=== PATIENT | female | born 2000 | race Caucasian/White ===

== ENCOUNTER 2025-02-19 09:31 | Emergency (ER) | payer OTHER, SELFPAY ==
[2025-02-19 09:36] VITALS: BP 118/79; TEMP 37.2; O2SAT 99; BMI 28.3
[2025-02-19 09:37] VITALS: TEMP 37.2; O2SAT 99; BMI 28.3
--- NOTE | 2025-02-19 09:50 | CT_ITS ---
The [address] [address] Patient Name: MARIA ALEJANDRA BARRIENTOS MRN: [id number] date: 2000 Sex: F Assigned Patient Location: ED.MAIN Current Patient Location: ED.MAIN Accession/Order Number: [id number] Exam Date: 02/19/2025 09:55 Report Date: 02/19/2025 10:31 At the request of: RUBY HOGAN MD Procedure: CT head/brain wo con CT BRAIN WITHOUT CONTRAST: CLINICAL HISTORY: Headache, nausea and photosensitivity since yesterday. COMPARISON: None TECHNIQUE: Contiguous axial unenhanced images were obtained through the brain. This CT exam was performed using one or more following dose reduction techniques: Automated exposure control, adjustment of the mA and/or kV according to patient size, or use of iterative reconstruction technique. FINDINGS: The ventricles are normal in size and position. There are no areas of abnormal attenuation. There is no hemorrhage, mass effect or extra-axial collections. The imaged paranasal sinuses and mastoid air cells are clear. CT/CT head/brain wo con IMPRESSION: NO ACUTE INTRACRANIAL ABNORMALITY. Impression dictated by: Catarina Romano M.D. 02/19/2025 10:31 AM Dictation Location: [place] [address] Electronically authenticated by: [id number] Y Date: 02/19/2025 10:31
--- OUTSIDE RECORDS SUMMARY | 2025-02-19 09:55 | XMS_ITS | Encounter Summary ---
Author Organization [facility] Address [address] [place] [address] Care Team Providers Care Wheat Inspector Name Role Phone Deondre Carrasco MD Primary Care Provider [phone] Encounter Details Date Type Department Care Team (Late st Contact Info) Description 05/13/2024 Orders Only [facility] [address] SALAS [address] [phone] Social History Tobacco Use Types Packs/Day Years Used Date Smoking Tobacco: Never Smokeless Tobacco: Never Alcohol Use Standard Drinks/Week Comments Not Currently 0 (1 standard drink = 0.6 oz pur e alcohol) caffeine: occasional Humiliation, Afraid, Rape, and Kick questionnair e Answer Date Recorded Within the last year, have y ou been afraid of your partner or ex-partner? No 11/28/2023 Within the last year, have y ou been humiliated or emotionally abused in other ways by your partner or ex-partner? No Within the last year, have y ou been kicked, hit, slapped, or otherwise physically hurt by your partner or ex-partner? No 11/28/2023 Within the last year, have y ou been raped or forced to have any kind of sexual activity by your partner or ex-partner? No 11/28/2023 Social Connection and Isolat ion Panel [NHANES] Answer Date Recorded In a typical week, how many times do you talk on the phone with family, friends, or neighbors? More than three times a week 11/28/2023 How often do you get togethe r with friends or relatives? More than three times a week 11/28/2023 How often do you attend chur or latter day services? More than 4 times per year 11/28/2023 Do you belong to any clubs o r organizations such as latter day groups, unions, fraternal or athletic groups, or school groups? Yes 11/28/2023 How often do you attend meet ings of the clubs or organizations you belong to? More than 4 times per year 11/28/2023 Are you , , di vorced, , never , or living with a partner? Living with partner 11/28/2023 AUDIT-C Answer Date Recorded Q1: How often do you have a drink containing alc ohol? Monthly or less 11/28/2023 Q2: How many drinks containi ng alcohol do you have on a typical day when you are drinking? 1 or 2 11/28/2023 Q3: How often do you have si x or more drinks on one occasion? Never 11/28/2023 Overall Financial Resource Strain (CARDIA) Answe r Date Recorded How hard is it for you to pa y for the very basics like food, housing, medical care, and heating? Not hard at all 11/28/2023 PHQ-2 Answer Date Recorded Patient Health Questionnaire-2 Score 0 11/28/2023 [facility] - Occupational Stress Questionnaire Answer Date Recorded Do you feel stress - tense, restless, nervous, or anxious, or unable to sleep at night because your mind is troubled all the time - these days? Only a little 11/28/2023 Exercise Vital Sign Answer Date Recorde d On average, how many days pe r week do you engage in moderate to strenuous exercise (like a brisk walk)? 7 days 11/28/2023 On average, how many minutes do you engage in exercise at this level? 60 min 11/28/2023 Hunger Vital Sign Answer Date Recorded Within the past 12 months, y ou worried that your food would run out before you got the money to buy more. Never true 11/28/19 24 Within the past 12 months, t he food you bought just didn't last and you didn't have money to get more. Never true 11/28/2023 PRAPARE - Transportation Answer Date Re corded In the past 12 months, has l ack of transportation kept you from medical appointments or from getting medications? No 11/2023 In the past 12 months, has l ack of transportation kept you from meetings, work, or from getting things needed for daily living? No 11/28/2023 Housing Stability Vital Sign Answer Zackery e Recorded In the last 12 months, was t here a time when you were not able to pay the mortgage or rent on time? No 11/28/2023 Number of Places Lived in the Last Year Not on f ile 11/28/2023 In the last 12 months, was t here a time when you did not have a steady place to sleep or slept in a usp (including now)? No 11/28/2023 Education Answer Date Recorded What is the highest level of school you have completed or the highest degree you have received? High school graduate 11/28/2023 Comments Yes Sex and Gender Information Value Date Recorded Sex Assigned at Not on file Legal Sex Female 7:40 PM EDT Gender Identity Not on file Sexual Orientation Not on file Occupation Industry Job Start Date Job End Date [employer] Not on file Not on file Not on file documented as of this encounter Plan of Treatment Not on file documented as of this encounter Procedures Procedure Name Priority Date/Time Associated Diagnosis Comments ULTRASOUND : OBSTETRICS Routine 05/11/20 24 10:55 AM EST documented in this encounter Results * ULTRASOUND : OBSTETRICS (05/11/2024 10:55 AM EST) Anatomical Region Laterality Modality Ultrasound us Mfm Ultrasound 1 IMG XR PROCEDURES Final Result documented in this encounter Visit Diagnoses Not on filedocumented in this encounter Care Teams Wheat Inspector Relationship Specialty Start Date End Date Deondre Carrasco MD PCP - General Family Medicine 03/04/23 documented as of this encounter
--- OUTSIDE RECORDS SUMMARY | 2025-02-19 09:55 | XMS_ITS | Clinical Summary ---
Author Organization [facility] Address [address] [place] [address] Care Team Providers Care Clinical Radiologist Name Role Phone Unavailable Primary Care Provider Unavailabl e Allergies Active Allergy Reactions Criticality Noted Date Comments Adhesive Tape-Silicones Rash 01/03/2021 Hydroxyzine Unknown 01/03/2021 Medications polyethylene glycol 3350 (MIRALAX, GLYCOLAX) 17 gram/dose powderIndication s:Abdominal pain, unspecified abdominal location,BRBPR (bright red blood per rectum) Use as directed for Miralax / Gatorade Bowel Prep Kit 238 g 1 Active Gatorade Sports DrinkIndications :Abdominal pain, unspecified abdominal location,BRBPR (bright red blood per rectum) Use as directed for Miralax / Gatorade Bowel Prep Kit 64 oz 1 Active Bisacodyl (DULCOLAX) 5 mg tabIndications:A bdominal pain, unspecified abdominal location,BRBPR (bright red blood per rectum) Use as directed for Miralax / Gatorade Bowel Prep Kit 4 tablet 1 Active cefdinir (OMNICEF) 300 mg capsule take 2 capsules by mouth once daily for 10 days 1 Active Active Problems No known active problems Family History Medical History Relation Comments SLE fibromylagia Mother Rashes / Skin problems Sister Relation Status Comments Brother Alive Father Alive Mother Alive Sister Alive Social History Tobacco Use Types Packs/Day Years Used Date Smoking Tobacco: Former Cigarettes 0.2 4 Smokeless Tobacco: Never Alcohol Use Standard Drinks/Week Comments Yes 0 (1 standard drink = 0.6 oz pur e alcohol) Area Deprivation Index Answer Date Micah rded National Score (1-100), lower number is lower ri sk Not on file 01/03/2021 State Score (1-10), lower number is lower risk N ot on file 01/03/2021 Data from: https://www.neighborhoodatlas.[facility]/. Last address used for calculation Not on file 01/03/2021 Comments Unknown Sex and Gender Information Value Date Recorded Sex Assigned at Not on file Legal Sex Female 9:44 AM EDT Gender Identity Not on file Sexual Orientation Not on file Last Filed Vital Signs Vital Sign Reading Time Taken Comments Blood Pressure 134/75 01/03/2021 10:04 AM EDT Pulse 74 01/03/2021 10:04 AM EDT Temperature 36.4 C (97.6 F) 01/03/2021 10:04 AM EDT Respiratory Rate - - Oxygen Saturation - - Inhaled Oxygen Concentration - - Weight 73.3 kg (161 lb 9.6 oz) 01/03/2021 10:04 AM EDT Height 159 cm (5' 2.6 ) 01/03/2021 10:04 AM EDT Body Mass Index 29 01/03/2021 10:04 AM EDT Plan of Treatment Health Maintenance Due Date Last Done Comments Peds To Adult Transition Initial Discussion 2010 Peds To Adult Transition Annual Assessment 2012 HPV Vaccine (1 - 3-dose series) 2013 Anxiety Screening 2016 Depression Screening 2016 HIV Screening 2016 Hepatitis C Screening 2016 DTaP,Tdap,Td Vaccine (1 - Tdap) 2017 Hepatitis B Vaccine (1 of 3 - 19+ 3-dose series) 10/12 Cervical Cancer Screening 10/13/2019 Influenza Vaccine (#1) 2025 Insurance [employer]
--- OUTSIDE RECORDS SUMMARY | 2025-02-19 09:56 | XMS_ITS | Encounter Summary ---
Author Organization [facility] Address [address] [place] [address] Care Team Providers Care Water/Wastewater Engineer Name Role Phone Deondre Carrasco MD Primary Care Provider [phone] Encounter Details Date Type Department Care Team (Late st Contact Info) Description 02/08/2025 Orders Only [facility] [address] EDITH D [address] [phone] Astrid Fitzpatrick MA Hx of herpes genitalis Social History Tobacco Use Types Packs/Day Years [...] 11/28/2023 How often do you attend chur ch or amish services? More than 4 times per year 11/28/2023 Do you belong to any clubs o r organizations such as rastafari groups, unions, fraternal or athletic groups, or [...] Date Recorded Patient Health Questionnaire-2 Score 0 09/30/2024 [facility] - Occupational Stress Questionnaire Answer Date Recorded [...] place to sleep or slept in a mcc (including now)? No 11/28/2023 [place] Depression Scale Answer Date Recorded Last EPDS Total Score Not on file 08/25/2024 The thought of harming myself has occurred to me . Never 08/25/2024 Education Answer Date Recorded What is the highest level of school you have completed or the highest degree you have received? High school graduate 11/28/2023 Comments No Sex and Gender Information Value Date Recorded Sex Assigned at Not on file Legal Sex Female 7:40 PM EDT Gender Identity Not on file Sexual Orientation Not on file Occupation Industry Job Start Date Job End Date [employer] Not on file Not on file Not on file documented as of this encounter Plan of Treatment Scheduled Orders Name Type Priority Associated Diagnoses Orde r Schedule HSV 1/2 IGG,TYPE SPECIFIC AB Lab Routine Hx of herpes genitalis Expected: 02/08/2025 (Approximate), Expires: 02/08/2026 documented as of this encounter Visit Diagnoses Diagnosis Hx of herpes genitalis documented in this encounter Care Teams Water/Wastewater Engineer Relationship Specialty Start Date End Date Deondre Carrasco MD PCP - General Family Medicine 03/04/23 documented as of this encounter
--- OUTSIDE RECORDS SUMMARY | 2025-02-19 09:56 | XMS_ITS | Clinical Summary ---
Author Organization [facility] Address [address] [place] [address] [address] Care Team Providers Care Digital Performance Analyst Name Role Phone Deondre Carrasco MD Primary Care Provider [phone] Allergies Active Allergy Reactions Criticality Noted Date Comments Hydroxyzine Anaphylaxis High 01/03/2021 Other Reaction(s): Unknown Wound Dressing Adhesive Rash,Swelling Low Medications Vit-Fe Fumarate-FA ( Vitamins) 28-0.8 MG tablet Take by mouth Active ondansetron ODT (Zofran-ODT) 4 MG disintegrating tabletIndications:S upervision of normal intrauterine in multigravida, first trimester ([facility]),Nausea and vomiting in ([facility]) Take 1 tablet (4 mg) by mouth every 8 (eight) hours if needed for nausea or vomiting 30 tablet 2 4 Active valACYclovir (Valtrex) 500 MG tabletIndications:P regnancy related condition in third trimester ([facility]),Hx of herpes genitalis Take 1 tablet (500 mg) by mouth Daily 30 tablet 1 4 Active Active Problems Problem Noted Date Diagnosed Date Acute appendicitis with loca lized peritonitis, without perforation, abscess, or gangrene 03/06/2023 Buttocks presentation ([facility]) 03/05/2023 Single umbilical artery ([facility]) 03/05/2023 Encounters Date Type Department Care Team Description 02/08/2025 Telephone [facility] [address] SALAS [facility] [address] [place] [phone] Astrid Fitzpatrick MA 02/08/2025 Orders Only [facility] [address] SALAS [facility] [address] [place] [phone] Astrid Fitzpatrick MA Hx of herpes genitalis from Last 3 Months Immunizations Immunization Administration Dates Next Due DTaP, Unspecified 11/10/2003, 1,05/12/1999,02/03/1999, 1998 Hep B, Adolescent or Pediatric 1998,1998 HiB, unspecified 02/03/1999,1998 Hib (HbOC) 07/05/2000 Hib / Hep B 05/12/1999 IPV 11/10/2003,11/08/1999,1998 MMR 11/10/2003,11/08/1999 Meningococcal ACWY, unspecified 02/28/2010 Meningococcal MCV4P 02/20/2016 OPV 02/03/1999 Tdap 02/28/2010 Family History Medical History Relation Name Comments Hypertension Father abdominal aortic an Father Heart disease Mother Marija Branden Lupus Mother Marija Branden Rheum arthritis Mother Marija Branden Relation Name Status Comments Father Alive Mother Marija Branden Alive Social History Tobacco Use Types Packs/Day Years Used Date Smoking Tobacco: Never Smokeless Tobacco: Never Tobacco Cessation:Counseling Given: No Alcohol Use Standard Drinks/Week Comments Not Currently [...] often do you attend chur ch or sabianist services? More than 4 times per year 11/28/2023 Do you belong to any clubs o r organizations such as jain groups, unions, fraternal or athletic groups, or [...] Recorded Patient Health Questionnaire-2 Score 0 09/30/2024 [facility] - Occupational Stress [...] place to sleep or slept in a intermediate (including now)? No 11/28/2023 [place] Depression Scale Answer Date Recorded Last EPDS [...] file Not on file Not on file Last Filed Vital Signs Vital Sign Reading Time Taken Comments Blood Pressure 118/82 08/25/2024 2:23 PM EST Pulse - - Temperature - - Respiratory Rate - - Oxygen Saturation - - Inhaled Oxygen Concentration - - Weight 76.2 kg (168 lb) 08/25/2024 2:23 PM EST Height 157.5 cm (5' 2 ) 08/25/2024 2:23 PM EST Body Mass Index 30.73 08/25/2024 2:23 PM EST Plan of Treatment Health Maintenance Due Date Last Done Comments Influenza Vaccine (#1) 2025 Insurance [employer] Care Teams Digital Performance Analyst Relationship Specialty Start Date End Date Deondre Carrasco MD PCP - General Family Medicine 03/04/23
--- OUTSIDE RECORDS SUMMARY | 2025-02-19 09:56 | XMS_ITS | Encounter Summary ---
Author Organization [facility] Address [address] [place] [address] Care Team Providers Care Psychiatry Adult Physician Name Role Phone Deondre Carrasco MD Primary Care Provider [phone] Encounter Details Date Type Department Care Team (Late st Contact Info) Description 02/08/2025 Telephone [facility] [address] [phone] Astrid Fitzpatrick MA Social History Tobacco Use Types Packs/Day Years [...] How often do you attend chur or anabaptism services? More than 4 times per year 11/28/2023 Do you belong to any clubs o r organizations such as jewish groups, unions, fraternal or athletic groups, or [...] Recorded Patient Health Questionnaire-2 Score 0 09/30/2024 [facility] - Occupational [...] in a intermediate (including now)? No 11/28/2023 [place] Depression Scale Answer Date Recorded Last EPDS [...] on file documented as of this encounter Miscellaneous Notes * Telephone Encounter - Astrid Fitzpatrick MA - 02/08/2025 12:06 PM EDT error documented in this encounter Plan of Treatment Not on file documented as of this encounter Visit Diagnoses Not on filedocumented in this encounter Care Teams Psychiatry Adult Physician Relationship Specialty Start Date End Date Deondre Carrasco MD PCP - General Family Medicine 03/04/23 documented as of this encounter
--- NOTE | 2025-02-19 09:58 | ED.GENADUL1 ---
HPI HPI - General Adult General Chief complaint: Headache Stated complaint: headache Time Seen by Provider: 02/19/25 09:36 Source: patient Mode of arrival: walk-in History of Present Illness HPI narrative: 24-year-old female to the emergency department with chief complaint of headache. Patient reports symptoms began yesterday. It is a pressure-like pain located frontally. She reports that she has photophobia and phonophobia associated. She feels dizzy, lightheaded. She denies any fevers, sweats, chills. No recent illness. No neck pain. No head injury or trauma. She took some ibuprofen yesterday which did help for short period however the headache returned. She reports she does have a history of migraines but has never sought care for them. Usually responds to OTC medications. She is currently on her menstrual cycle. Related Data Home Medications ?Medication ?Instructions ?Recorded ?Confirmed No Known Home Medications 02/19/25 02/19/25 Allergies Allergy/AdvReac Type Severity Reaction Status Date / Time hydroxyzine (From Vistaril) Allergy Hives Verified 02/19/25 09:35 Opioid HPI Opioid Management Most Recent Opioid Data: Last Pain Scale 5 Today, 10:54 Review of Systems ROS Status of ROS 10 or more systems reviewed and unremarkable except as noted in history and below PFSH PFSH Social History Little interest or pleasure in doing things: not at all Feeling down, depressed, or hopeless: not at all Exam Narrative Exam Narrative: VITALS: I have reviewed the triage vital signs. GENERAL: Well developed, well appearing adult in no acute distress. NEURO: Alert and oriented x4. Moves all extremities. Face is symmetric and expressive. Cranial nerves II through XII grossly intact as tested. Muscular strength and sensation grossly intact upper and lower extremities bilaterally. No dysarthria. No aphasia. No ataxia. Normal gait. NIHSS 0. EYES: PERRL. No scleral icterus or conjunctival injection. No discharge. HENT: Normocephalic, atraumatic. Hearing is grossly intact. Nares grossly patent and without discharge. Mucous membranes moist. NECK: No JVD. Patient moves neck without restriction. CARDIO: Rhythm regular. Normal rate. No murmur, rub, or gallop. Pulses equal bilaterally in the upper and lower extremity. No lower extremity edema. PULM: Lungs clear to auscultation in all dias. No wheezes, rales, or rhonchi. No conversational dyspnea. No splinting, stridor, or accessory muscle use. GI/: Abdomen is soft and non-tender. Normoactive bowel sounds. EXTREMITIES: Symmetric muscle bulk. No joint swelling. No clubbing, cyanosis, or deformity. SKIN: Warm and dry. Normal turgor. No rash or lesions appreciated. PSYCH: Mood, affect, and interaction is appropriate to the setting. Constitutional Vital Signs, click to edit/add: Last Vital Signs Temp 98.9 F 02/19/25 09:37 Resp 16 02/19/25 09:37 BP 118/79 02/19/25 09:36 Pulse Ox 99 02/19/25 09:37 O2 Del Method Room Air 02/19/25 09:37 Course Vital Signs Vital signs: Vital Signs Temperature 98.9 F 02/19/25 09:36 Respiratory Rate 16 02/19/25 09:36 Blood Pressure 118/79 02/19/25 09:36 Pulse Oximetry 99 02/19/25 09:36 Oxygen Delivery Method Room Air 02/19/25 09:36 Temperature 98.9 F 02/19/25 09:37 Respiratory Rate 16 02/19/25 09:37 Blood Pressure 118/79 02/19/25 09:36 Pulse Oximetry 99 02/19/25 09:37 Oxygen Delivery Method Room Air 02/19/25 09:37 Medical Decision Making MDM Narrative Medical decision making narrative: Well-appearing 24-year-old female to the emergency department describing headache for 48 hours. Vital stable, the patient is afebrile. She has no focal or neurologic deficits. She has a longstanding history of minor headaches that respond to OTC medications, she reports never this severe. Headaches slowly progressive in onset. No meningismus. Given severity of headache, never been worked up for headache before we will order CT scan of the head, patient agrees with this plan. She reports currently on menstrual cycle, declines a test. Migraine cocktail is ordered. CT head without acute findings. Patient reexamined after the medications. She reports complete resolution of her headache, feels much improved. She remains neurologically intact. Her vitals remained stable. Discussed return precautions. Follow-up with PCP. All questions were answered. The patient was discharged home. Medical Records Medical records reviewed: Yes I reviewed the patient's medical records Imaging Data CT scan - head: Attestation: I have reviewed the pertinent imaging results. Radiologist's impression: ITS Impressions Head CT 02/19/25 09:50 IMPRESSION: NO ACUTE INTRACRANIAL ABNORMALITY. Impression dictated by: Catarina Romano M.D. 02/19/2025 10:31 AM Dictation Location: [place] [address] Electronically authenticated by: [id number] Y Date: 02/19/2025 10:31 Discharge Plan Discharge Chief Complaint: Headache Clinical Impression: Headache Patient Disposition: Home, Self-Care Time of Disposition Decision: 11:05 Condition: Good Mode of Transportation: Private Vehicle Prescriptions / Home Meds: No Action No Known Home Medications Print Language: [place] Instructions: Acute Headache (ED) Additional Instructions: Call the office of your primary care doctor to arrange for follow-up within the above-stated timeframe. Your ED visit was focused on your acute issue and does not replace primary care. You should review your labs, imaging, and diagnoses from this ED visit with your primary care physician. There may be non-emergent/ incidental findings that need further evaluation. You should review your vital signs including blood pressure with your PCP. If you were prescribed medications you should discuss possible side-effects and drug interactions with your pharmacist. Call 911 or go to the nearest Emergency Department if you develop any new or worsening symptoms. Seek immediate medical attention if you develop: worsening headache, nausea, vomiting, confusion, weakness, loss of motion in your arms or legs, loss of control of your urine Referrals: Deondre Carrasco MD [Primary Care Provider, Family Practice] - 1 week
[2025-02-19] MEDS: METHYLPREDNISOLONE SOD SUCC PF 125 MG/2 ML VIAL IVP (10:17)
[2025-02-19] MEDS: 0.9 % SODIUM CHLORIDE 1,000 ML 1000 ML IV (10:17)
[2025-02-19] MEDS: ACETAMINOPHEN 325 MG TABLET 650 MG PO (10:17)
[2025-02-19] MEDS: METOCLOPRAMIDE HCL 10 MG/2 ML VIAL IVP (10:18)
[2025-02-19] MEDS: DIPHENHYDRAMINE HCL 50 MG/ML VIAL 25 MG IV (10:18)
[2025-02-19] MEDS: KETOROLAC TROMETHAMINE 30 MG/ML VIAL IVP (10:54)
== END 2025-02-19 11:50 | disposition home or self-care (01) ==
PROVIDERS: Emergency Provider Student in an Organized Health Care Education/Training Program; PCP Family Medicine
DX: R51.9 Headache, unspecified (principal)
CPT/HCPCS: 70450; 96361; 96374; 96375; 99284; J1200; J1885; J2765; J2919